=== PATIENT | female | born 1990 | race Two or more races ===

== ENCOUNTER 2024-08-23 07:20 | Emergency (ER) | payer SELFPAY ==
[2024-08-23 07:21] VITALS: BMI 30.2
[2024-08-23 07:43] VITALS: BP 143/92; PULSE 73; RESP 24; TEMP 36.5; O2SAT 100; BMI 28.5
--- NOTE | 2024-08-23 08:15 | EDNOTE_ITS ---
ED Abdominal Pain RME/HPI General Chief Complaint: Abdominal Pain Stated complaint: abdominal pain 03/27, [place] Time seen by provider: 08/23/24 07:36 Arrival date/time: 08/23/24 07:20 RME / HPI RME / HPI narrative: DR. BRUSH MAIN ED EVALUATION: 33 year old female presents to the Emergency Department accompanied by the mother with complaint of abdominal pain since this morning. Pain is described as aching and rated moderate in severity. No similar symptoms in the past. Associated dry heaving but no actual vomiting. No diarrhea. Patient is on her last day of her menses. PMHx: Denies any PMHx, surgeries, daily medications, or known allergies. Social Hx: No tobacco, alcohol, or substance use. Related Data Previous Rx's ?Medication ?Instructions ?Recorded Sulfamethoxazole/Trimethoprim DS * 1 tab PO BID #14 ta bs 12/28/16 (BACTRIM DS *) Allergies Allergy/AdvReac Type Severity Reaction Status Date / Time No Known Allergies Allergy Unverified 08/23/24 07:57 Review of Systems Review of Systems Systems Reviewed: All systems reviewed, normal except as documented Narrative Review of Systems: GEN: No fever, no chills, no weight loss EYES: No discharge, no visual changes, no pain HEENT: No ear pain, no congestion, no sore throat PULM: No shortness of breath, no cough, no congestion CV: No chest pain, no dyspnea on exertion, no palpitations GI: No nausea, no vomiting, + dry heaving but no actual vomiting, + abdominal pain, no constipation : No frequency, no urgency and no dysuria MUSC/SKEL: No joint pain, no back pain SKIN: No rash PSYCH: No hallucinations, no depression HEME/LYMPH: No easy bleeding or bruising tendencies NEURO: No weakness, no headache Past Medical History Social History SMOKING STATUS: Never smoker SUBSTANCE USE: does not use ALCOHOL: Never ED Exam Narrative Physical exam: GENERAL APPEARANCE: alert and oriented x 4, well-developed, well-nourished, looks uncomfortable and dry heaving VITALS: All vitals were reviewed and the pulse ox is 100% on room air, which is normal according to my interpretation. HEENT: Normocephalic, atraumatic; pupils equal, round, reactive to light; EOMI; mucous membranes pink, moist; oropharynx clear NECK: Supple LUNGS: CTABL; no wheezes, no rales, no rhonchi HEART: Regular rate, regular rhythm; normal S1, S2; no murmurs ABDOMEN: non distended; normal BS; soft, no tenderness, no guarding, no rebound; no masses, no organomegaly, no hernia BACK: no CVA tenderness EXTREMITIES: atraumatic; no edema NEUROLOGIC: awake; alert and oriented x4; cranial nerves II-XII grossly intact; no focal sensory or motor deficits PSYCHIATRIC: appropriate mood and affect SKIN: warm, dry, normal color; no rashes Course Quality Measures none Orders Category Date Time Status Insert IV NOW Care 08/23/24 07:49 Active XR abdomen series w chest 1V Stat Exams 08/23/24 09:10 Completed CBC Stat Lab 08/23/24 08:20 Completed Comprehensive Metabolic Panel Stat Lab 08/23/24 08:20 Completed Drug Screen,Urine Stat Lab 08/23/24 07:54 Completed HCG,Qualitative Serum Stat Lab 08/23/24 08:20 Completed Lipase Stat Lab 08/23/24 08:20 Completed UA, C/S IF [Urinalysis, C/S if Indicated] Stat Lab 08/23/24 07:54 Completed Haloperidol Lactate [Haldol Inj] Med 08/23/24 11:44 Discontinued 5 mg IM X1 ONE Lidocaine 2% Viscous [Xylocaine 2% Viscous] Med 08/23/24 08:56 Discontinued 15 ml PO X1 ONE Magnesium Citrate Liqd [Citrate of Magnesia Liqd] Med 08/23/24 13:14 Discontinued 300 ml PO X1 ONE Metoclopramide Inj [Reglan Inj] Med 08/23/24 10:04 Discontinued 10 mg IVP X1 ONE Morphine Inj Med 08/23/24 07:49 Discontinued 4 mg IVP X1 ONE Ondansetron Inj [Zofran Inj] Med 08/23/24 07:49 Discontinued 4 mg IV X1 ONE Pantoprazole Inj [Protonix Inj] Med 08/23/24 07:49 Discontinued 40 mg IVP X1 ONE Sodium Chloride 0.9% 1000 ml [Ns] 1,000 ml Med 08/23/24 07:49 Discontinued IV 999 mls/hr Sucralfate Susp [Carafate Susp] Med 08/23/24 08:56 Discontinued 1 gm PO X1 ONE mg Hyd/Al Hyd/Isha Susp [Maalox Susp] Med 08/23/24 08:56 Discontinued 30 ml PO X1 ONE Vital Signs Vital signs: Vital Signs Temperature 97.7 F 08/23/24 07:43 Pulse Rate 73 08/23/24 07:43 Respiratory Rate 24 H 08/23/24 07:43 Blood Pressure 143/92 H 08/23/24 07:43 Pulse Oximetry (%) 100 08/23/24 07:43 Oxygen Delivery Method Room Air 08/23/24 07:43 Abdominal Pain MDM MDM Narrative MDM Narrative:: Radha Mota am scribing for and in the presence of Dr. Brush. Patient data External records reviewed:: None (no previous visits) Clinical information provided by:: patient Social determinants that could affect healthcare access:: none Patient has the following chronic illnesses:: Denies any PMHx, surgeries, daily medications, or known allergies. How is presenting disease/condition affected by chronic disease/condition?: no chronic disease Evaluation data The following diagnostics were reviewed and interpreted by me:: lab results and radiology exam(s) Lab and/or radiology exams considered but not ordered:: none Interpretation Summary: Procedure(s): XR abdomen series w chest 1V Accession Number(s): [id number] cc: Kale Burgess MD; NO PRIMARY/FAMILY,PHYSICIAN; Stephania Brush MD~ Abdominal series 3 views including upright AP chest Technique: AP upright chest, AP upright AP supine abdomen 3 views Exam date and time: August 23, 2024 0946 hrs. Indications: Abdominal pain today Findings: Normal heart size Lungs are clear. Moderate stool throughout the colon No free air Impression: Nonobstructive bowel gas pattern Dictated By: Kale Burgess MD Medications / Prescriptions Medications or Prescriptions considered but not ordered:: none Medication administrations:: Medication Administration History Discontinued Medications Al Hydrox/Mg Hydrox/Simethicone (Mg Hyd/Al Hyd/Isha (Maalox Reg) Susp 30 Ml Udc) 30 ml PO X1 ONE Stop: 08/23/24 08:57 Last Admin: 08/23/24 09:29 Dose: 30 ml Documented By: JING Haloperidol Lactate (Haloperidol Lact Inj 5 Mg/Ml Vial) 5 mg IM X1 ONE Stop: 08/23/24 11:45 Last Admin: 08/23/24 11:50 Dose: 5 mg Documented By: KM Sodium Chloride (Ns) 1,000 mls @ 999 mls/hr IV .Q1H1M ONE Stop: 08/23/24 08:49 Last Infusion: 08/23/24 09:40 Dose: Infused Documented By: Admin: 08/23/24 08:36 Dose: 999 mls/hr Documented By: JING Lidocaine HCl (Lidocaine Viscous 2% 15 Ml Udc) 15 ml PO X1 ONE Stop: 08/23/24 08:57 Last Admin: 08/23/24 09:29 Dose: 15 ml Documented By: JING Magnesium Citrate (Magnesium Citrate 300 Ml Btl) 300 ml PO X1 ONE Stop: 08/23/24 13:15 Metoclopramide HCl (Metoclopramide Inj 5 Mg/Ml Vial 2 Ml) 10 mg IVP X1 ONE; Protocol Stop: 08/23/24 10:05 Last Admin: 08/23/24 10:44 Dose: 10 mg Documented By: JING Morphine Sulfate (Morphine Sulf Inj 10 Mg/Ml Vial) 4 mg IVP X1 ONE Stop: 08/23/24 07:50 Last Admin: 08/23/24 08:37 Dose: 4 mg Documented By: JING Ondansetron HCl (Ondansetron Inj 2 Mg/Ml Inj 2 Ml) 4 mg IV X1 ONE; Protocol Stop: 08/23/24 07:50 Last Admin: 08/23/24 08:36 Dose: 4 mg Documented By: JING Pantoprazole Sodium (Pantoprazole Inj 40 Mg Vial) 40 mg IVP X1 ONE Stop: 08/23/24 07:50 Last Admin: 08/23/24 08:37 Dose: 40 mg Documented By: JING Sucralfate (Sucralfate Susp 1 Gm/10 Ml Udc) 1 gm PO X1 ONE Stop: 08/23/24 08:57 Last Admin: 08/23/24 10:44 Dose: 1 gm Documented By: JING see above Consultations Consultation(s) initiated? (list below): No Diagnosis Differential diagnosis abdominal pain: abdominal pain, calculus of kidney, constipation, diverticulitis and pancreatitis Most likely diagnosis given after review of the tests above:: Gastritis Admission Indicated Admission indicated?: not indicated Admission Request Was there a request for admission?: No Disposition Plan Disposition Plan: Discharge Discharge Attestation Discharge Attestation: The patient and all family members were given an opportunity to ask questions and understood the discharge instructions. Discharge instructions specifically effects, indications for sooner follow up or return to the emergency department, and the expected course of current diagnosis. Patient condition: Stable Discharge Plan Plan Patient Disposition: HOME (Self Care) Prescriptions/Referrals Prescriptions/Med Rec: No Action Sulfamethoxazole/Trimethoprim DS * (BACTRIM DS *) 1 TAB tablet 1 tab PO BID Qty: 14 0RF Referrals: No Primary/Family,Physician [Primary Care Provider] - In 1 week Problem List Clinical Impression: Gastritis Patient/Caregiver Discharge Instructions Education Materials: Cannabinoid Hyperemesis Syndrome, ED Gastritis (Adult) Print Language: [place] Stand Alone Forms: Sandhya Award Info., Patient Portal Info Letter
[2024-08-23 08:31] LABS: Collection Type, Urine Clean Catch
[2024-08-23 08:33] LABS: Basophils % (Auto) 0 % (0-2.5); Eosinophils % (Auto) 0 % (0-10); Hematocrit 34.3 % (36.0-46.0); Hemoglobin 11.9 g/dL (12.0-16.0); Immature Granulocytes % (Auto) 0 % (0-0); Immature Granulocytes Auto 0.02 Thou/mm3 (0.00-0.00); Lymphocytes % (Auto) 12 % (10-50); Mean Corpuscular HGB Conc 34.7 g/dl (31.0-37.0); Mean Corpuscular Hemoglobin 26.5 pg (25.0-35.0); Mean Corpuscular Volume 76 fL (80-100); Monocytes # (Auto) 0.2 Thou/mm3 (0.0-0.8); Monocytes % (Auto) 3 % (0-12); Neutrophils # (Auto) 7.6 Thou/mm3 (1.8-7.7); Neutrophils % (Auto) 85 % (37-80); Nucleated Red Blood Cell % 0 /100 WBC (0); Platelet Count 411 Thou/mm3 (140-440); RDW Standard Deviation 39.9 fL (36.4-46.3); Red Blood Count 4.49 Miln/mm3 (4.00-5.20); White Blood Count 8.9 Thou/mm3 (3.6-11.0)
[2024-08-23] MEDS: SODIUM CHLORIDE 0.9% 1000 ML 1,000 ML 999 ML IV (08:36)
[2024-08-23] MEDS: ONDANSETRON INJ 2 MG/ML INJ 2 ML 4 MG IV (08:36)
[2024-08-23] MEDS: MORPHINE SULF INJ 10 MG/ML VIAL 4 MG IVP (08:37)
[2024-08-23] MEDS: PANTOPRAZOLE INJ 40 MG VIAL IVP (08:37)
[2024-08-23 08:41] LABS: Bilirubin,Urine Negative (Negative); Blood,Urine 3+ (Negative); Clarity,Urine Clear (Clear/Hazy); Color,Urine Yellow (Lt Yel-Yel); Culture Indicated,Urine Not Indicated; Glucose, Urine Negative (Negative); Ketones,Urine 1+ (Negative); Leukocyte Esterase,Urine Negative (Negative); Nitrite,Urine Negative (Negative); Protein,Urine Trace (Neg - Trace); RBC,Urine 19 /hpf (0-3); Specific Gravity,Urine 1.033 (1.001-1.035); Squamous Epithelial Cell,Urine 2 /hpf (0-5); Urobilinogen,Urine Negative mg/dL (0.0-1.0); WBC,Urine 2 /hpf (0-5)
[2024-08-23 08:45] LABS: HCG,Qualitative Serum Negative
[2024-08-23 08:51] LABS: Alanine Aminotransferase 10 U/L (10-49); Albumin, Serum 4.6 gm/dL (3.5-5.0); Albumin/Globulin Ratio 1.6 (1.2-2.2); Alkaline Phosphatase 65 U/L (46-116); Anion Gap 11 (7-16); Aspartate Amino Transferase 18 U/L (0-34); BUN/Creatinine Ratio 16 Ratio (12-20); Bilirubin,Total 1.2 mg/dL (0.3-1.2); Blood Urea Nitrogen 13 mg/dL (9-23); Calcium 9.7 mg/dL (8.3-10.6); Calcium (Corrected) 9.7 mg/dL (8.5-10.1); Carbon Dioxide 21.6 mMol/L (20.0-31.0); Chloride 108 mMol/L (98-107); Creatinine (Component) 0.8 mg/dL (0.6-1.3); Estimated Creatinine Clearance 98.6 mL/min (>60); Globulin 2.9 gm/dL (2.3-3.5); Glucose 183 mg/dL (74-106); Lipase 41 U/L (12-53); Osmolality,Calculated 286 (275-295); Potassium 3.5 mMol/L (3.4-5.1); Sodium 141 mMol/L (136-145); Total Protein 7.5 gm/dL (5.7-8.2); eGFR > 60 See Note
[2024-08-23 08:54] LABS: Amphetamine/Methamp Scrn,U Negative (Negative); Barbiturate Screen,Urine Negative (Negative); Benzodiazepines Screen,Urine Negative (Negative); Benzoylecgonine Screen, Ur Negative (Negative); Fentanyl Screen,Urine Negative (Negative); Opiate Screen,Urine Negative (Negative); THC Screen,Urine Positive (Negative)
--- NOTE | 2024-08-23 09:10 | XR_ITS ---
Abdominal series 3 views including upright AP chest Technique: AP upright chest, AP upright AP supine abdomen 3 views Exam date and time: August 23, 2024 0946 hrs. Indications: Abdominal pain today Findings: Normal heart size Lungs are clear. Moderate stool throughout the colon No free air Impression: Nonobstructive bowel gas pattern
[2024-08-23] MEDS: MG HYD/AL HYD/SIME (Maalox Reg) SUSP 30 ML UDC PO (09:29)
[2024-08-23] MEDS: LIDOCAINE VISCOUS 2% 15 ML UDC PO (09:29)
[2024-08-23 09:34] VITALS: BP 166/99; PULSE 70; RESP 18; TEMP 36.6; O2SAT 99
[2024-08-23 10:27] VITALS: BP 160/94; PULSE 73; RESP 16; TEMP 36.5; O2SAT 97
[2024-08-23] MEDS: METOCLOPRAMIDE INJ 5 MG/ML VIAL 2 ML 10 MG IVP (10:44)
[2024-08-23] MEDS: SUCRALFATE SUSP 1 GM/10 ML UDC PO (10:44)
[2024-08-23] MEDS: HALOPERIDOL LACT INJ 5 MG/ML VIAL IM (11:50)
[2024-08-23 12:34] VITALS: BP 154/98; PULSE 66; RESP 16; TEMP 36.4; O2SAT 95
[2024-08-23] MEDS: MAGNESIUM CITRATE 300 ML BTL PO (13:55)
== END 2024-08-23 13:55 | disposition home or self-care (01) ==
PROVIDERS: Nurse Practitioner Primary Care; Emergency Provider Emergency Medicine
DX: K29.70 Gastritis, unspecified, without bleeding (principal)
CPT/HCPCS: 36415; 74022; 80053; 80307; 81001; 83690; 84703; 85025; 96361; 96372; 96374; 99284; J1630; J2270; J2405; J2470; J2765; J3490; J7030; A9270